=== PATIENT | female | born 1970 | race Two or more races ===

== ENCOUNTER 2019-03-01 08:19 | Outpatient (CLI) | payer OTHER ==
[~2019-03-01 08:19] MED LIST: DEPAKOTE ER500 MG; EFFEXOR XR150 MG; LAMICTAL200 M1; PROSCAR5 MG; RISPERDAL4 MG; ZIAC 10/6.25 MG1 TAB
== END 2019-03-01 08:22 | disposition home or self-care (01) ==
LOC: SONOGRAMA 08:19
DX: E04.1 Nontoxic single thyroid nodule (principal)

== ENCOUNTER 2019-05-08 17:29 | Emergency (ER) | payer OTHER ==
[~2019-05-08] VITALS: Ht 152.4 cm; Wt 81.6 kg
== END 2019-05-08 18:48 | disposition home or self-care (01) ==
LOC: ER 17:29
DX: M75.82 Other shoulder lesions, left shoulder (principal); M25.512 Pain in left shoulder